=== PATIENT | female | born 1985 | race Caucasian/White ===

== ENCOUNTER 2018-01-08 14:44 | Emergency (ER) | payer SELFPAY ==
[~2018-01-08] VITALS: Ht 175.3 cm; Wt 153.8 kg
[~2018-01-08 14:44] MED LIST: AMOX500; CEPH500 PO; Verotin-Gr Cap1 EACH PO
[2018-01-08 15:46] LABS: BASOPHILS ABSOLUTE AUTO 0.03 K/mm3 (0.00-0.23); BASOPHILS PERCENT AUTO 0 % (0-2); EOSINOPHILS PERCENT AUTO 1 % (0-6); Hematocrit 40.3 % (33.0-51.0); Hemoglobin 13.5 g/dL (11.5-16.0); IMMATURE GRAN ABSOLUTE AUTO 0.02 K/mm3 (0.00-0.10); IMMATURE GRAN PERCENT AUTO 0 % (0-1); LYMPHOCYTES ABSOLUTE AUTO 2.91 K/mm3 (0.84-5.20); LYMPHOCYTES PERCENT AUTO 26 % (21-46); MONOCYTES ABSOLUTE AUTO 0.49 K/mm3 (0.16-1.47); MONOCYTES PERCENT AUTO 4 % (4-13); Mean Corpuscular HGB 29.8 pg (26.0-34.0); Mean Corpuscular HGB Conc 33.5 g/dL (31.5-36.5); Mean Corpuscular Volume 89 fL (80-100); Mean Platelet Volume 9.6 fL (9.1-12.4); NEUTROPHILS ABSOLUTE AUTO 7.73 K/mm3 (1.96-9.15); NEUTROPHILS PERCENT AUTO 69 % (41-73); Platelet Count 281 K/mm3 (150-400); RDW Coefficient Variation 12.6 % (11.7-14.2); RDW Standard Deviation 40.9 fL (35.1-46.3); Red Blood Cell Count 4.53 M/mm3 (3.80-5.20); White Blood Cell Count 11.28 K/mm3 (4.00-11.30)
[2018-01-08 16:07] LABS: Alanine Aminotransfer (ALT/SGP 33 U/L (12-78); Albumin, Blood 4.1 g/dL (3.4-5.0); Alk Phos 115 U/L (50-136); Anion Gap 8 mmol/L (6-16); Aspartate Aminotrans (AST/SGOT 24 U/L (12-37); Beta HCG, Quantitative, Serum 41 mIU/mL (0-3); Bilirubin, Total 0.5 mg/dL (0.1-1.0); Blood Urea Nitrogen 10 mg/dL (8-24); Bun/Creatinine Ratio 16.4 (12.0-20.0); CO2, Blood 23 mmol/L (21-32); Calcium, Blood 8.7 mg/dL (8.5-10.1); Chloride, Blood 108 mmol/L (98-108); Creatinine, Blood 0.61 mg/dL (0.40-1.00); Globulin, Blood 4.3 g/dL (2.2-4.0); Glomerular Filtration Rate >60 (60-); Glucose, Blood 104 mg/dL (70-99); Potassium, Blood 4.1 mmol/L (3.5-5.5); Sodium, Blood 139 mmol/L (136-145); Total Protein, Blood 8.4 g/dL (6.4-8.2)
== END 2018-01-08 18:19 | disposition left against medical advice (07) ==
LOC: ER 14:44
PROVIDERS: Internal Medicine
DX: Z53.21 Procedure and treatment not carried out due to patient leaving prior to being seen by health care provider (principal)
CPT/HCPCS: 36415; 80053; 84702; 85025

== ENCOUNTER → 2018-02-21 | Outpatient (CLI) | payer OTHER ==
[2018-02-23 15:09] LABS: HPV 16 Negative (Negative); HPV 18 Negative (Negative); HPV OTHER HR TYPES Negative (Negative)
== END | disposition home or self-care (01) ==
LOC: LAB SHORT 15:10 → LAB 15:10
PROVIDERS: Obstetrics & Gynecology
DX: Z34.80 Encounter for supervision of other normal pregnancy, unspecified trimester (principal)
CPT/HCPCS: 87624; G0123

== ENCOUNTER → 2018-03-14 | Outpatient (CLI) | payer OTHER ==
[2018-03-15 08:56] LABS: Protein, Urine Quantitative 15.3 mg/dL (0.0-11.9)
== END ==
LOC: LAB SHORT 06:12 → LAB 06:12
PROVIDERS: Obstetrics & Gynecology
DX: O16.9 Unspecified maternal hypertension, unspecified trimester (principal)
CPT/HCPCS: 81050; 84156

== ENCOUNTER → 2018-08-20 | Outpatient (CLI) | payer OTHER | LOC: LAB 15:09 → LAB SHORT 15:09 | DX: Z34.80 Encounter for supervision of other normal pregnancy, unspecified trimester (principal) | CPT/HCPCS: 87081; 87653 ==

== ENCOUNTER 2018-08-30 07:40 | Inpatient (IN) | payer OTHER ==
[~2018-08-30] VITALS: Ht 172.7 cm; Wt 0.2 kg
[2018-08-30] MEDS ORDERED: LABE100 PO (08:12)
[2018-08-30] MEDS ORDERED: Prozac20 MG ×3 (08:13→08:15)
[2018-08-30] MEDS ORDERED: Omeprazole20 M1 (08:15)
[2018-08-30] MEDS ORDERED: Metformin HCl500 MG PO (08:17)
[2018-08-30] MEDS ORDERED: Novolog100 UNIT/2 (08:18)
[2018-08-30 09:08] LABS: BASOPHILS ABSOLUTE AUTO 0.03 K/mm3 (0.00-0.23); BASOPHILS PERCENT AUTO 0 % (0-2); EOSINOPHILS ABSOLUTE AUTO 0.06 K/mm3 (0.00-0.68); EOSINOPHILS PERCENT AUTO 1 % (0-6); Hematocrit 36.6 % (33.0-51.0); Hemoglobin 11.8 g/dL (11.5-16.0); IMMATURE GRAN ABSOLUTE AUTO 0.02 K/mm3 (0.00-0.10); IMMATURE GRAN PERCENT AUTO 0 % (0-1); LYMPHOCYTES ABSOLUTE AUTO 2.47 K/mm3 (0.84-5.20); LYMPHOCYTES PERCENT AUTO 29 % (21-46); MONOCYTES ABSOLUTE AUTO 0.35 K/mm3 (0.16-1.47); MONOCYTES PERCENT AUTO 4 % (4-13); Mean Corpuscular HGB 29.2 pg (26.0-34.0); Mean Corpuscular HGB Conc 32.2 g/dL (31.5-36.5); Mean Corpuscular Volume 91 fL (80-100); Mean Platelet Volume 10.5 fL (9.1-12.4); NEUTROPHILS ABSOLUTE AUTO 5.68 K/mm3 (1.96-9.15); NEUTROPHILS PERCENT AUTO 66 % (41-73); Platelet Count 230 K/mm3 (150-400); RDW Coefficient Variation 13.9 % (11.7-14.2); RDW Standard Deviation 46.3 fL (35.1-46.3); Red Blood Cell Count 4.04 M/mm3 (3.80-5.20); White Blood Cell Count 8.61 K/mm3 (4.00-11.30)
[2018-08-31 06:05] LABS: Hematocrit 35.5 % (33.0-51.0); Hemoglobin 11.4 g/dL (11.5-16.0); Mean Corpuscular HGB 28.9 pg (26.0-34.0); Mean Corpuscular HGB Conc 32.1 g/dL (31.5-36.5); Mean Corpuscular Volume 90 fL (80-100); Platelet Count 239 K/mm3 (150-400); RDW Coefficient Variation 13.9 % (11.7-14.2); RDW Standard Deviation 45.1 fL (35.1-46.3); Red Blood Cell Count 3.94 M/mm3 (3.80-5.20); White Blood Cell Count 11.75 K/mm3 (4.00-11.30)
--- NOTE | 2018-08-31 15:13 | NUR ---
CONSULT. HAS NOT BEEN SUCCESSFUL WITH BF WITH 3 OTHER CHILDREN. HAS HAD BABY LATCHED SEVERAL TIMES, IS OFFERING FORMULA SUPPLEMENT AFTER BF IF BABY IS NOT SATISFIED. INSTRUCT IN SUPPLY AND DEMAND OF PRODUCTION AND THE IMPORTANCE OF FREQUENT BF SESSIONS TO STIMULATE PRODUCTION. BREASTS VERY LARGE AND PENDULOUS AND TOWEL SUPPORT UNDER BREAST STILL DOES NOT LET NIPPLE BE VISIBLE EASILY TO ASSIST LATCHING. SEVERAL POSITIONS TRIED, MOM PLANS TO TRY LYING DOWN LATER. SHE IS HANDLING BABY WELL. BABY CAN MAINTAIN THE LATCH. INSTRUCT/DEMO FURTHER WIDENING THE LATCH, LEAVING NIPPLE SOMEWHAT PINCHED AND WITH LOWER SIDE FLATTENED. INSTRUCT IN CHANGES TO EXPECT DURING THE FIRST WEEK WITH BABY AND WITH BF AND REFERRED TO BF BROCHURE AND PAGE 18 OF BF BOOKLET. INSTRUCT IN USING FORMULA SUPPLEMENTS SPARINGLY, AND VERY SMALL AMOUNTS UNTIL MILK COMES IN, THEN STOP ALL FORMULA SUPPLEMENTS UNLESS MARKED WT LOSS IN BABY. DENIES FURTHER QUESTIONS.
--- NOTE | 2018-08-31 22:34 | NUR ---
DISCHARGE ISNTRUCTIONS REVIEWED WITH PT AND ALL QUESTIONS ANSWERED. BANDS MATCHED WITH NB AND PT AND S.O. DENY ANY FURTHER QUESTIONS/CONCERNS AT THIS TIME.
== END 2018-08-31 22:45 | disposition home or self-care (01) | DRG 805 ==
LOC: BC 07:40
PROVIDERS: ADMIT Obstetrics & Gynecology
PROC: 10E0XZZ Delivery of Products of Conception, External Approach (ICD-10-PCS; principal; 2018-08-30)
PROC: 3E033VJ Introduction of Other Hormone into Peripheral Vein, Percutaneous Approach (ICD-10-PCS; 2018-08-30)
PROC: 10907ZC Drainage of Amniotic Fluid, Therapeutic from Products of Conception, Via Natural or Artificial Opening (ICD-10-PCS; 2018-08-30)
PROC: 10H07YZ Insertion of Other Device into Products of Conception, Via Natural or Artificial Opening (ICD-10-PCS; 2018-08-30)
PROC: 3E0R3BZ Introduction of Anesthetic Agent into Spinal Canal, Percutaneous Approach (ICD-10-PCS; 2018-08-30)
PROC: 0HQ9XZZ Repair Perineum Skin, External Approach (ICD-10-PCS; 2018-08-30)
DX: O10.92 Unspecified pre-existing hypertension complicating childbirth (principal); O24.12 Pre-existing type 2 diabetes mellitus, in childbirth; Z37.0 Single live birth; Z68.42 Body mass index [BMI] 45.0-49.9, adult; E11.9 Type 2 diabetes mellitus without complications; O99.214 Obesity complicating childbirth; E66.01 Morbid (severe) obesity due to excess calories; Z3A.37 37 weeks gestation of pregnancy; Z79.4 Long term (current) use of insulin; O70.0 First degree perineal laceration during delivery; Z88.1 Allergy status to other antibiotic agents; Z88.0 Allergy status to penicillin
CPT/HCPCS: 36415; 36416; 51702; 82947; 85025; 85027; J1885; J2210; J2590; J7120

== ENCOUNTER → 2019-07-12 | Outpatient (CLI) | payer OTHER ==
[~2019-07-12] MED LIST changes: +LABE100 PO; +Metformin HCl500 MG PO; +Novolog100 UNIT/2; +Omeprazole20 M1; +Prozac20 MG
== END | disposition home or self-care (01) ==
LOC: LAB EV 13:32 → LAB SHORT 13:32
DX: J02.9 Acute pharyngitis, unspecified (principal)
CPT/HCPCS: 87081

== ENCOUNTER → 2019-10-01 | Outpatient (CLI) | payer OTHER | END | disposition home or self-care (01) | LOC: PLD 09:09 → LAB SHORT 09:09 | DX: N92.0 Excessive and frequent menstruation with regular cycle (principal) | CPT/HCPCS: 88305 ==

== ENCOUNTER → 2022-07-07 | Outpatient (CLI) | payer OTHER ==
[2022-07-08 15:09] LABS: HPV 16 Negative (Negative); HPV 18 Negative (Negative); HPV OTHER HR TYPES Negative (Negative)
== END | disposition home or self-care (01) ==
LOC: LAB SHORT 15:58
PROVIDERS: Obstetrics & Gynecology
DX: Z01.419 Encounter for gynecological examination (general) (routine) without abnormal findings (principal); Z80.3 Family history of malignant neoplasm of breast
CPT/HCPCS: 36415; 87624; G0145

== ENCOUNTER 2024-04-22 09:06 | Emergency (ER) | payer OTHER ==
[~2024-04-22] VITALS: Ht 172.7 cm; Wt 88.5 kg
[2024-04-22 09:48] VITALS: BP 114/84
[2024-04-22] MEDS ORDERED: Ketorolac Tromethamine 30mg Vial IM ONE (09:50)
[2024-04-22] MEDS ORDERED: Diazepam 5 MG Tab PO ONE (09:50)
[2024-04-22] MEDS ORDERED: PredniSONE 20 MG Tab PO ONE (11:10)
[2024-04-22] MEDS ORDERED: OxyCODONE 5 mg/Acetamin 325 mg TABLET PO ONE (11:10)
[2024-04-22] MEDS ORDERED: CYCL10 PO (11:11)
[2024-04-22] MEDS ORDERED: Norco 5-325 Ta1 EACH PO (11:11)
[2024-04-22] MEDS ORDERED: METPRE4DP PO (11:11)
== END 2024-04-22 11:34 | disposition home or self-care (01) ==
LOC: ER 09:06
DX: M54.50 Low back pain, unspecified (principal)
CPT/HCPCS: 96372; 99283-25; A9270; J1885; J7512

== ENCOUNTER → 2024-07-16 | Outpatient (CLI) | payer OTHER ==
[~2024-07-16] MED LIST changes: +CYCL10 PO; +METPRE4DP PO; +Norco 5-325 Ta1 EACH PO
[2024-07-16 15:08] LABS: Bacterial Vaginosis PCR Negative (NEGATIVE); Candida Group, PCR NOT DETECTED (NOT DETECT); Candida glabrata-krusei, PCR NOT DETECTED (NOT DETECT)
== END | disposition home or self-care (01) ==
LOC: LAB SHORT 09:37 → LAB 09:37
PROVIDERS: Advanced Practice Midwife
DX: N89.8 Other specified noninflammatory disorders of vagina (principal)
CPT/HCPCS: 81515